=== PATIENT | female | born 1965 | race Caucasian/White ===

== ENCOUNTER 2018-11-25 08:32 | Day surgery (SDC) | payer SELFPAY ==
--- NOTE | 2018-11-13 10:45 | EKG12_ITS ---
Test Reason : PRE-OP Blood Pressure : / mmHG Vent. Rate : 069 BPM Atrial Rate : 069 BPM P-R Int : 198 ms QRS Dur : 090 ms QT Int : 394 ms P-R-T Axes : 035 041 034 degrees QTc Int : 422 ms Normal sinus rhythm Normal ECG Confirmed by JANUARY FONTANA, NIKKO ([id number]), video news editor PRISCILA ABDALLA ([id number]) on 11/18/2018 9:56:26 AM Referred By: Yony Wade Confirmed By:NIKKO SIN MD
[2018-11-13 11:12] LABS: Hematocrit 40.1 % (37-47); Hemoglobin 13.2 g/dl (12.0-15.0); Mean Corp Hgb Conc 32.9 g/gl (32-36); Mean Corpuscular Hgb 31.8 pg (27.0-32.0); Mean Corpuscular Volume 96.6 fL (81-99); Mean Platelet Vol. 9.2 fl (6.2-12.0); Platelet Count 187 K/mm3 (150-450); RBC Distribution Width CV 11.7 % (11.6-14.6); RBC Distribution Width SD 41.4 fl (35.1-43.9); Red Blood Count 4.15 M/mm3 (4.2-5.4); White Blood Count 4.4 K/mm3 (4.4-11.0)
[2018-11-13 11:15] LABS: Scan Indicated on CBC? Y/N NO
[2018-11-13 11:35] LABS: Creatinine, Serum 0.73 mg/dL (0.55-1.02); EST Glomerular Filtration Rate 88 mL/min (>60); Est Glom Filt Rate - Afr Amer 107 mL/min (>60)
[2018-11-13 11:39] LABS: Prothrombin Time (Protime)PT. 13.1 SECONDS (11.7-14.9)
[2018-11-13 11:40] LABS: Partial Thromboplast Time 29.2 Seconds (24.1-36.2)
--- NOTE | 2018-11-24 21:07 | PCM.HP.BLA ---
History and Physical Date of Admission: 11/25/18 Surgical History and Physical Henry Schwarz, a 53 year old female 4 0 0 0 4, presents for Vaginal Hysterectomy and AP Repair on November 25, 2018 at 10:40. -- Uterine Prolapse -- Henry is referred for uterine prolapse and possible cystocele/rectocele. Pt relates just over 1yr ago she noted a bulge from the vagina and sx have continued to worsen. She sts she has urinary urgency and feels like she just cant completely empty her bladder. 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 Uterine prolapse, cystocele which began 1-2yrs ago. Esta claims it started suddenly and has been present constantly for 1 year. It occurs all the time. It is located in the vagina. Esta characterizes it to be non-radiating. Esta characterizes the quality aching. Severity is severe. It is aggravated by any activity. It is relieved by lying down. Associated signs and symptoms are Bulge from vagina. MEDICATIONS HISTORY: Current medications prescribed by our practice are: 1. Premarin 0.625 mg/gram vaginal cream, one half gram per vagina twice weekly at ALLERGIES: No Known Drug Allergies Infections - Chicken pox childhood Illnesses - no serious past illnesses Accidents - None Hospitalizations - Childbirth and see surgery Review of Systems: GENERAL - Denies fever, or chills SKIN - Denies skin changes EYES - Denies visual changes EARS - Denies difficulty hearing NOSE - Denies nasal congestion or bleeding MOUTH - Denies sore throat or difficulty swallowing NECK - Denies pain or swelling RESPIRATORY - Denies shortness of breath or wheezing CARDIOVASCULAR - Denies palpitations or chest pain GASTROINTESTINAL - Denies nausea, vomiting, diarrhea, constipation GENITOURINARY - Denies dysuria, frequency of urination, incontinence of urine MUSCULOSKELETAL - Denies joint or muscle pain NEUROLOGICAL - Denies localized numbness or weakness PSYCHIATRIC - Denies depression or anxiety ENDOCRINE - Denies heat or cold intolerance, weight loss or gain HEMATO-IMMUNOLOGIC - Denies excesive bleeding with cuts SOCIAL HISTORY: Alcohol Use - None Smoking - Never Diet - Trim Healthy Mamma Diet Lifestyle - moderate stress lifestyle and Exercise - active work Seat Belt Use - always Employer - Self Employed Catering Illicit Drug Use - None Sexual Activity - Spouse-Sig Other Name - Jose Spouse-Sig Other Occupation - [employer] Children Name(s) - 4 children Control - postmenopausal FAMILY HISTORY: nc MENSTRUAL HISTORY: LMP Known?- Postmenopausal, LMP - 02/04/16 PAST PREGNANCIES: Total Pregnancies - 4; Full Term Pregnancies - 4; Premature - 0; Abortions, Induced - 0; Abortions, Spontaneous - 0; Ectopics - 0; Multiple Births - 0; Living Children - 4 SURGICAL HISTORY: 1. Cyst removed from foot 2010 ; - PHYSICAL EXAM BP- 110/70 Sitting, Right arm, regular cuff Weight- 174.29485 lbs Height- 63 inch BMI:30.89 CONSTITUTIONAL - NAD, well nourished, and well developed HEENT - Normocephalic, PERRLA, EOMI NECK - no nuchal rigidity EXTREMITIES - No edema or calf tenderness NEUROLOGICAL - Cranial nerves II-XII grossly intact PSYCHIATRIC - A and O to time, place, person, mood and affect External Genitial Vagina - non-tender without lesions Urethra/Urethral Meatus - non-tender Bladder - non-tender Vagina - loss of rugae and large cystocele protruding 2 cm outside vaginal introitus Cervix - without cervical motion tenderness and has normal size and features without evident lesions and protrudes 2-3 cm outside introitus with bearing down Uterus - 5-6 cm in size, mobile and nontender Adnexa - clear without massess or tenderness ASSESSMENT/PLAN: 1. Uterovaginal Prolapse, Cystocele, Rectocele Very symptomatic. Tried pessary but desires now to proceed with surgery. Plan vaginal hysterectomy and anterior repair. Discussed RBAs and all questions answered.
[2018-11-25] VITALS (17 sets, daily range): BP systolic 84–126; BP diastolic 52–83; PULSE 53–92; RESP 14–18; TEMP 36.2–37.1; O2SAT 96–100; BMI 29.9
--- NOTE | 2018-11-25 | HYST_PTH ---
PATIENT: CHRISTOPHER SAGASTUME [place] [facility] [id number] AGE/SX: 53/F ROOM: RE11/25/[address]: Dr. Yony Wade MD : [id number] BED: DIS: 11/26/2018 SPEC #: [id number] RECD: 11/25/18 14:18 STATUS: LILLI WALKERKiran #: [id number] CHRIS: 11/25/18 00:[address]: Yony Wade DEPT: SURGICAL PATHOLOGY RECD BY: Josiah Lara ENTERED: 11/25/18 14:18 SP TYPE: HYSTERECT OTHR DR: MD Dr. Yony Sales MD Tissues: Uterus, NOS Procedures: Surgery Specimen Level V HEADER OPERATION: Vaginal hysterectomy, anterior and posterior repair PRE-OP DIAGNOSIS: Uterovaginal prolapse, cystocele, rectocele TISSUE SUBMITTED: Uterus, cervix, vaginal mucosa MICROSCOPIC DIAGNOSIS Uterus, cervix and vaginal mucosa; vaginal hysterectomy, anterior and posterior repair: Cervix - mild chronic inflammation and parakeratosis. Small nabothian cyst. Endometrium - endometrial polyp, negative for atypia or hyperplasia. Background endometrium showing inactive pattern. Myometrium - adenomyosis. Intramural leiomyomas with hyalinizing sclerosis. Vaginal mucosa - squamous mucosa with parakeratosis. CE:thang 11/26/18 MICROSCOPIC DESCRIPTION Slides are reviewed. GROSS DESCRIPTION Received in fixative is one container labeled with the patient's name and designated uterus. The specimen consists of a uterus with attached cervix measuring 11.5 x 5.5 x 4.8 cm and weighing 100 gm. The ectocervix is unremarkable. The cervical os is oval in contour. The endocervical canal measures 3.5 cm in length and is grossly unremarkable. The triangular endometrial cavity measures 4 x 3 cm. The velvety, light coronel endometrium measures up to 0.2 cm in thickness. The myometrium measures 2 cm in average thickness and is distorted by multiple spherical rubbery nodules resembling leiomyomas. Also present free in the container are multiple irregular fragments of glistening coronel mucosa with attached hemorrhagic submucosal tissue measuring in aggregate 7 x 5 x 0.6 cm. No mucosal mass lesions are identified. Internal Revenue [employer] Agent sections are submitted in ten cassettes as follows: 1 - anterior cervix, 2 - posterior cervix, 3 & 4 - anterior uterine wall, 5 & 6 - posterior uterine wall, 7 - largest myometrial mass, 8 - second largest myometrial mass, 9 - third largest myometrial mass, bisected, 10 - vaginal mucosa. / AM:thang 11/25/18 TC:1 CPT: 93196
--- NOTE | 2018-11-25 10:49 | PCM.OPRPT ---
Report of Operation Date of Procedure: 11/25/18 Pre-Operative Diagnosis: Uterovaginal Prolapse, Cystocele, Rectocele Post-Operative Diagnosis: Uterovaginal Prolapse, Cystocele, Rectocele Surgery/Procedure Performed:: Vaginal Hysterectomy, Anterior Posterior Repair Description of Surgical Findings:: 8 cm uterus with cervix protruding 2 cm outside of the introitus. Large cystocele, mild rectocele. batch and furnace operator: Tessy Lucero Type of Anesthesia:: General - endotracheal Anesthesiologist: Eddie Julio Specimen's removed: Uterus and vaginal mucosa Drains: Allen to straight drain Estimated Blood Loss (mL): 100 cc Fluids Replaced: Crystalloid Description of Procedure: Surgeon: Yony Wade MD, [facility] OG Indications: This is a 53-year-old multiparous patient who is been having problems with symptomatic uterine prolapse. Conservative measures including a pessary have not been helpful. Given this the patient desires that we proceed the above procedure. She has been counseled regarding the risk and indications of this procedure including the possibility of bleeding, infection, and injury to surrounding structures such as bowel bladder. All questions were answered. Procedure: Patient was taken to the operating room where after induction of general anesthesia she was placed in the dorsal lithotomy position and prepped and draped in the usual sterile fashion. A Allen catheter was placed. Anterior cervix was grasped with a tenaculum and anterior cervix circumscribed with cautery on a setting of 35 W coagulation. Anterior vaginal mucosa was undermined and anterior peritoneum was easily entered. The posterior aspect of the cervix was circumscribed with a knife and posterior peritoneum easily entered. Progressive bites were taken on either side of the uterine cervix and each pedicle ligated with 0 Vicryl suture. Superior pedicles were ligated ?2 with 0 Vicryl suture and sidewall pedicles were examined and oversewn where necessary with [id number] 0 Vicryl suture to achieve hemostasis. Posterior vaginal cuff was oversewn with running locked 0 Vicryl suture. Hemostasis was noted and peritoneum was closed in a pursestring fashion incorporating superior pedicles into the stitch. Vaginal cuff was then closed front to back with interrupted [id number] 0 Vicryl suture. Hemostasis was noted. Attention was turned toward the anterior repair portion of the procedure. Anterior vaginal mucosa was undermined and divided and then imbricated toward the midline with interrupted 0 Vicryl sutures. Vaginal mucosa was trimmed and then closed with interrupted 2-0 chromic suture. Vaginal cuff was then closed front to back with interrupted [id number] 0 Vicryl suture. Hemostasis was noted. Attention was turned toward the posterior repair portion of the procedure. Remnants of the hymenal ring were grasped with Allises and a V-shaped incision was made in the perineum. Rectovaginal mucosa was then undermined divided and then imbricated toward the midline with interrupted 0 Vicryl suture. Vaginal mucosa was trimmed and then closed with running locked 2-0 chromic suture. Remnants of the bulbocavernosus muscles were identified and brought toward the midline with a single [id number] 0 Vicryl suture and perineum was closed in the usual fashion with running and subcuticular, and myvhna-je-hkarl 2-0 chromic suture. Hemostasis was noted. Allen catheter was again opened and clear yellow urine was noted. Vagina was packed with iodoform tape. Patient tolerated the procedure well was taken to recovery room in satisfactory condition; sponge instrument and needle counts were all reportedly correct. Estimated blood loss for the case was less than 200 cc. Cefotan 2 g IV was given prior to beginning the operative procedure. There were no apparent complications of the surgery. Specimen to pathology was uterus and vaginal mucosa. Grafts/Implants Used: None - Complications None - Admit VTE Documentation VTE Present on Admission: Yes VTE Mechan Device Prophylaxis: SCD's VTE Pharm Prophylaxis ordered?: Yes
--- NOTE | 2018-11-25 10:55 | DCINST_ITS ---
Discharge Diet: No Restrictions Discharge Activity: Return to Normal Activity, May not drive while taking narcotic pain medications., May Shower May resume sexual activity in: 6-8 weeks Call your doctor if your incision/area has: Continuous Slow Oozing, Sudden Increased Bleeding, Increased Pain/ Swelling, Increased Redness, Foul Smelling Discharge Call your doctor if you observe: Fever of 101 or Higher, Inability to urinate, Inability to have a bowel movement, Using more than one pad per hour Allergies/Adverse Reactions: Allergies No Known Allergies Allergy (Verified 11/11/18 11:21) Medications to take at Discharge Dextrin [Fiber] 350 gm PO QHS 11/11/18 Multivitamins,Therapeutic [Multivitamin] 1 tablet PO DAILY 11/11/18 Docusate Sodium [Colace] 100 mg PO BID PRN PRN #60 cap 11/25/18 Oxycodone [Oxyir] 5 mg PO Q6H PRN PRN 7 Days #10 tab 11/25/18 The following prescriptions were given: Oxycodone [Oxyir] 5 mg PO Q6H PRN PRN 7 Days #10 tab PRN Reason: Severe Pain (-08/14) Docusate Sodium [Colace] 100 mg PO BID PRN PRN #60 cap PRN Reason: Constipation Orders to be completed after discharge: 12 Lead EKG [[facility]] Time Frame: 11/13/18, Location: None Selected Primary Care Physician: Yony Daley [Primary Care Provider] - Test Results: Test results from this visit will be discussed in further detail at your follow- up appointment, if applicable. Please Follow Up With: Yony Wade MD When: 2-3 weeks
[2018-11-25] MEDS: Dextrose 5%-Lactated Ringers 1,000 ML 150 ML IV (17:17)
[2018-11-25] MEDS: Acetaminophen 500 MG Tablet 1000 MG PO (17:22)
[2018-11-25] MEDS: Enoxaparin 30 MG/0.3 ML Syringe SC (17:22)
[2018-11-25] MEDS: Ketorolac 30 MG/ML Syringe IV (18:42)
[2018-11-25] MEDS: 0.9% NaCl Peripheral Flush Adult/Peds IV (18:42)
[2018-11-25] MEDS: oxyCODONE 5 MG Tablet PO (20:26)
[2018-11-26] MEDS: Dextrose 5%-Lactated Ringers 1,000 ML 150 ML IV (00:10)
[2018-11-26] MEDS: Ketorolac 30 MG/ML Syringe IV (01:10)
[2018-11-26] MEDS: 0.9% NaCl Peripheral Flush Adult/Peds IV ×2 (01:12→06:40)
[2018-11-26 03:57] VITALS: BP 101/67; PULSE 60; RESP 16; TEMP 36.4; O2SAT 99
[2018-11-26 05:54] LABS: Hematocrit 30.7 % (37-47); Hemoglobin 10.3 g/dl (12.0-15.0); Mean Corp Hgb Conc 33.6 g/gl (32-36); Mean Corpuscular Hgb 32.4 pg (27.0-32.0); Mean Corpuscular Volume 96.5 fL (81-99); Mean Platelet Vol. 9.6 fl (6.2-12.0); Platelet Count 152 K/mm3 (150-450); RBC Distribution Width CV 11.2 % (11.6-14.6); RBC Distribution Width SD 38.5 fl (35.1-43.9); Red Blood Count 3.18 M/mm3 (4.2-5.4)
[2018-11-26 06:04] LABS: Scan Indicated on CBC? Y/N NO
[2018-11-26 06:19] LABS: Creatinine, Serum 0.66 mg/dL (0.55-1.02); EST Glomerular Filtration Rate 98 mL/min (>60); Est Glom Filt Rate - Afr Amer 119 mL/min (>60); Estimated Creatinine Clearance 83.17 ml/min
[2018-11-26] MEDS: Ketorolac 10 MG Tablet PO ×2 (06:42→12:26)
[2018-11-26 07:54] VITALS: BP 99/61; PULSE 60; RESP 16; TEMP 36.6; O2SAT 99
--- NOTE | 2018-11-26 08:42 | PCM.PN.OB ---
Subjective: Patient without complaints. Tolerating diet well. Positive flatus. Minimal vaginal bleeding overnight. - Physical Exam Vital Signs Temp Pulse Resp BP Pulse Ox 97.9 F 60 16 99/61 99 11/26/18 07:54 11/26/18 07:54 11/26/18 07:54 11/26/18 07:54 11/26/18 07:54 Oxygen Flow Rate (L/min) 2 Oxygen Delivery Method Room Air Weight: 174 lb 13.225 oz Body Mass Index (BMI) 29.9 Intake and Output for Last 24 Hours 11/24/18 11/25/18 11/26/18 23:59 23:59 23:59 Intake Total 6740 / 6740 2579 / 2579 Output Total 455 / 455 1800 / 1800 Balance 6285 / 6285 779 / 779 Laboratory Tests Past 24 Hrs 11/26/18 11/26/18 05:14 05:14 WBC 8.0 RBC 3.18 L Hgb 10.3 L Hct 30.7 L MCV 96.5 MCH 32.4 H MCHC 33.6 RDW 11.2 L RDW Differential 38.5 Plt Count 152 MPV 9.6 Creatinine 0.66 Estim Creat Clear Calc 83.17 Est GFR (MDRD) Af Amer 119 Est GFR (MDRD) Non-Af 98 Vaginal pack out and minimal vaginal bleeding. Hemoglobin and creatinine okay. Medical Necessity - Tobacco Use Smoking Status: Never smoker Assessment/Plan Doing well postoperative day #1 status post vaginal hysterectomy and anterior posterior repair. We will released to home later today when able to void on her own.
--- OUTSIDE RECORDS SUMMARY | 2019-01-27 15:51 | XMS RPT_ITS ---
:1965 Author Organization OHIP Care Team Providers Name Role Phone Yony Wade Attending Unavailable Yony Wade Referring Unavailable Yony Daley Primary Care Unavailable Eren Wade Consulting Unavailable PROBLEMS PROBLEMS DATE TYPE CONDITION / CODE ATTENDING STATUS SOURCE 11/26/2018 Unknown G89.18 - Other acute Yony Wade Active [facility] postprocedural pain Community / G89.18(ICD-10) Hospital Repository PROCEDURES PROCEDURES No Procedure Records FoundRESULTS RESULTS CBC-COMPLETE BLOOD CNT Collected: 11/26/2018 Status: F Source: [place] NO DIFF 5:14 AM [facility] REPOSITORY TYPE CODE TESTS RESULT OUT OF RANGE REFERENCE UNITS LAB L100.1000 4.4-11.0 K/mm3 Normal WBC 8.0 LAB L100.1200 4.2-5.4 M/mm3 Low RBC 3.18 LAB L100.1300 12.0-15.0 g/dl Low HGB 10.3 LAB L100.1400 37-47 % Low HCT 30.7 LAB L100.1500 81-99 fL Normal MCV 96.5 LAB L100.1600 27.0-32.0 pg High MCH 32.4 LAB L100.1700 32-36 g/gl Normal MCHC 33.6 LAB L100.1810 11.6-14.6 % Low RDW CV 11.2 LAB L100.1820 35.1-43.9 fl Normal RDW SD 38.5 LAB L100.1900 150-450 K/mm3 Normal PLT 152 LAB L100.2000 6.2-12.0 fl Normal MPV 9.6 Performed By: #### L100.0500 #### [facility] [address] [place], [place], [address] SERUM CREATININE AND Collected: 11/26/2018 Status: F Source: [place] GFR 5:14 AM [facility] REPOSITORY TYPE CODE TESTS RESULT OUT OF RANGE REFERENCE UNITS LAB L501.1100 0.55-1.02 mg/dL Normal 0.66 CREAT,SERUM Result Comment: The validity of the calculated GFR AND GFRAA in patients over 70 years has not been determined. Clinical correlation is essential. LAB L501.1110 >60 mL/min Normal EST GFR 98 Result Comment: Non- GFR Calc LAB L501.1115 >60 mL/min Normal EST GFR - AA 119 Result Comment: GFR Calc LAB L501.1255 ml/min Normal Estimated CRCL 83.17 Performed By: #### L501.1105 #### [facility] [address] [place], [address] OPERATIVE REPORT Observed: 11/25/2018 Status: F Source: [place] 12:57 PM [facility] REPOSITORY [facility] Medical Records Department [address] [place] [address] Operative Report 11/25/18 1049 MR#: [id number] Acct: [id number] Name: CHRISTOPHER SCHWARZ Rep #: [id number] : 1965 53 From: Yony Wade MD PCP: Yony Daley MD Status: [facility] Y Location: [place] [address] Report of Operation Date of Procedure: 11/25/18 Pre-Operative Diagnosis: Uterovaginal Prolapse, Cystocele, Rectocele Post-Operative Diagnosis: Uterovaginal Prolapse, Cystocele, Rectocele Surgery/Procedure Performed:: Vaginal Hysterectomy, Anterior Posterior Repair Description of Surgical Findings:: 8 cm uterus with cervix protruding 2 cm outside of the introitus. Large cystocele, mild rectocele. pump machine operator: Tessy Lucero Type of Anesthesia:: General - endotracheal Anesthesiologist: Eddie Julio Specimen's removed: Uterus and vaginal mucosa Drains: Allen to straight drain Estimated Blood Loss (mL): 100 cc Fluids Replaced: Crystalloid Description of Procedure: Surgeon: Yony Wade MD, [facility] OG Indications: This is a 53-year-old multiparous patient who is been having problems with symptomatic uterine prolapse. Conservative measures including a pessary have not been helpful. Given this the patient desires that we proceed the above procedure. She has been counseled regarding the risk and indications of this procedure including the possibility of bleeding, infection, and injury to surrounding structures such as bowel bladder. All questions were answered. Procedure: Patient was taken to the operating room where after induction of general anesthesia she was placed in the dorsal lithotomy position and prepped and draped in the usual sterile fashion. A Allen catheter was placed. Anterior cervix was grasped with a tenaculum and anterior cervix circumscribed with cautery on a setting of 35 W coagulation. Anterior vaginal mucosa was undermined and anterior peritoneum was easily entered. The posterior aspect of the cervix was circumscribed with a knife and posterior peritoneum easily entered. Progressive bites were taken on either side of the uterine cervix and each pedicle ligated with 0 Vicryl suture. Superior pedicles were ligated 2 with 0 Vicryl suture and sidewall pedicles were examined and oversewn where necessary with bupmig-hn-gomjk 0 Vicryl suture to achieve hemostasis. Posterior vaginal cuff was oversewn with running locked 0 Vicryl suture. Hemostasis was noted and peritoneum was closed in a pursestring fashion incorporating superior pedicles into the stitch. Vaginal cuff was then closed front to back with interrupted pdxbsw-pm-ygkgj 0 Vicryl suture. Hemostasis was noted. Attention was turned toward the anterior repair portion of the procedure. Anterior vaginal mucosa was undermined and divided and then imbricated toward the midline with interrupted 0 Vicryl sutures. Vaginal mucosa was trimmed and then closed with interrupted 2-0 chromic suture. Vaginal cuff was then closed front to back with interrupted bnrdnn-wq-aoncv 0 Vicryl suture. Hemostasis was noted. Attention was turned toward the posterior repair portion of the procedure. Remnants of the hymenal ring were grasped with Allises and a V-shaped incision was made in the perineum. Rectovaginal mucosa was then undermined divided and then imbricated toward the midline with interrupted 0 Vicryl suture. Vaginal mucosa was trimmed and then closed with running locked 2-0 chromic suture. Remnants of the bulbocavernosus muscles were identified and brought toward the midline with a single hsxgaf-kh-fjjec 0 Vicryl suture and perineum was closed in the usual fashion with running and subcuticular, and hqhrlk-vo-citrf 2-0 chromic suture. Hemostasis was noted. Allen catheter was again opened and clear yellow urine was noted. Vagina was packed with iodoform tape. Patient tolerated the procedure well was taken to recovery room in satisfactory condition; sponge instrument and needle counts were all reportedly correct. Estimated blood loss for the case was less than 200 cc. Cefotan 2 g IV was given prior to beginning the operative procedure. There were no apparent complications of the surgery. Specimen to pathology was uterus and vaginal mucosa. Grafts/Implants Used: None - Complications None - Admit VTE Documentation VTE Present on Admission: Yes VTE Mechan Device Prophylaxis: SCD's VTE Pharm Prophylaxis ordered?: Yes 11/25/18 1257 <Electronically signed by Yony Wade MD> Date Yony Wade MD CC: Eren Wade MD; Yony Daley MD; Yony Wade MD Signed DISCHARGE INSTRUCTION Observed: 11/25/2018 Status: F Source: [place] 10:55 AM [facility] REPOSITORY [facility] Medical Records Department [address] [place] [address] Instructions for Home/Discharge Instructions 11/25/18 1054 MR#: [id number] Acct: [id number] Name: CHRISTOPHER SCHWARZ Rep #: [id number] : 1965 53 From: Yony Wade MD PCP: Yony Daley MD Status: REG SDC Discharge Diet: No Restrictions Discharge Activity: Return to Normal Activity, May not drive while taking narcotic pain medications., May Shower May resume sexual activity in: 6-8 weeks Call your doctor if your incision/area has: Continuous Slow Oozing, Sudden Increased Bleeding, Increased Pain/ Swelling, Increased Redness, Foul Smelling Discharge Call your doctor if you observe: Fever of 101 or Higher, Inability to urinate, Inability to have a bowel movement, Using more than one pad per hour Allergies/Adverse Reactions: Allergies No Known Allergies Allergy (Verified 11/11/18 11:21) Medications to take at Discharge Dextrin [Fiber] 350 gm PO QHS 11/11/18 Multivitamins,Therapeutic [Multivitamin] 1 tablet PO DAILY 01/07/19 Docusate Sodium [Colace] 100 mg PO BID PRN PRN #60 cap 11/25/18 Oxycodone [Oxyir] 5 mg PO Q6H PRN PRN 7 Days #10 tab 11/25/18 The following prescriptions were given: Oxycodone [Oxyir] 5 mg PO Q6H PRN PRN 7 Days #10 tab PRN Reason: Severe Pain (6-08/14) Docusate Sodium [Colace] 100 mg PO BID PRN PRN #60 cap PRN Reason: Constipation Orders to be completed after discharge: 12 Lead EKG [CVS] Time Frame: 11/13/18, Location: None Selected Primary Care Physician: Yony Daley [Primary Care Provider] - Test Results: Test results from this visit will be discussed in further detail at your follow-up appointment, if applicable. Please Follow Up With: Yony Wade MD When: 2-3 weeks 11/25/18 1055 <Electronically signed by Yony Wade MD> Date Yony Wade MD CC: Eren Wade MD; Yony Daley MD Signed HYSTERECTOMY SPECIMEN Observed: 11/25/2018 Status: F Source: [place] 12:00 AM [facility] REPOSITORY Patient: CHRISTOPHER SCHWARZ : 1965 (53/F) Acct Num: [id number] Phys: Yony Wade MD Unit Num: [id number] [place] [facility] [place]imen: [id number] Received: 11/25/18 - 1418 Spec Type: HYSTERECT TISSUES 1 TISSUES: Uterus, NOS GROSS DESCRIPTION Received in fixative is one container labeled with the patient's name and designated uterus. The specimen consists of a uterus with attached cervix measuring 11.5 x 5.5 x 4.8 cm and weighing 100 gm. The ectocervix is unremarkable. The cervical os is oval in contour. The endocervical canal measures 3.5 cm in length and is grossly unremarkable. The triangular endometrial cavity measures 4 x 3 cm. The velvety, light coronel endometrium measures up to 0.2 cm in thickness. The myometrium measures 2 cm in average thickness and is distorted by multiple spherical rubbery nodules resembling leiomyomas. Also present free in the container are multiple irregular fragments of glistening coronel mucosa with attached hemorrhagic submucosal tissue measuring in aggregate 7 x 5 x 0.6 cm. No mucosal mass lesions are identified. Senior Tax Accountant sections are submitted in ten cassettes as follows: 1 - anterior cervix, 2 - posterior cervix, 3 AND 4 - anterior uterine wall, 5 AND 6 - posterior uterine wall, 7 - largest myometrial mass, 8 - second largest myometrial mass, 9 - third largest myometrial mass, bisected, 10 - vaginal mucosa. / AM:thang TC:1 CPT: 24917 HEADER OPERATION: Vaginal hysterectomy, anterior and posterior repair PRE-OP DIAGNOSIS: Uterovaginal prolapse, cystocele, rectocele TISSUE SUBMITTED: Uterus, cervix, vaginal mucosa MICROSCOPIC DESCRIPTION Slides are reviewed. MICROSCOPIC DIAGNOSIS Uterus, cervix and vaginal mucosa; vaginal hysterectomy, anterior and posterior repair: Cervix - mild chronic inflammation and parakeratosis. Small nabothian cyst. Endometrium - endometrial polyp, negative for atypia or hyperplasia. Background endometrium showing inactive pattern. Myometrium - adenomyosis. Intramural leiomyomas with hyalinizing sclerosis. Vaginal mucosa - squamous mucosa with parakeratosis. CE:thang 11/26/18 Signed Ruben Gibson MD <signature on file> Performed By: #### PHYST #### [facility] [address] [place], [address] HISTORY AND PHYSICAL Observed: 11/24/2018 Status: F Source: [place] EXAM 9:09 PM [facility] REPOSITORY [facility] Medical Records Department [address] [place] [address] History and Physical 11/24/18 2107 MR#: [id number] Acct: [id number] Name: CHRISTOPHER SCHWARZ Rep #: [id number] : 1965 53 From: Yony Wade MD PCP: Yony Daley MD Status: [place] [facility] [place] [facility] [place] and Physical Date of Admission: 11/25/18 Surgical History and Physical Christopher Schwarz, a 53 year old female 4 0 0 0 4, presents for Vaginal Hysterectomy and AP Repair on November 25, 2018 at 10:40. -- Uterine Prolapse -- Christopher is referred for uterine prolapse and possible cystocele/rectocele. Pt relates just over 1yr ago she noted a bulge from the vagina and sx have continued to worsen. She sts she has urinary urgency and feels like she just cant completely empty her bladder. 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 Uterine prolapse, cystocele which began 1- 2yrs ago. Esta claims it started suddenly and has been present constantly for 1 year. It occurs all the time. It is located in the vagina. Esta characterizes it to be non-radiating. Esta characterizes the quality aching. Severity is severe. It is aggravated by any activity. It is relieved by lying down. Associated signs and symptoms are Bulge from vagina. MEDICATIONS HISTORY: Current medications prescribed by our practice are: 1. Premarin 0.625 mg/gram vaginal cream, one half gram per vagina twice weekly at ALLERGIES: No Known Drug Allergies Infections - Chicken pox childhood Illnesses - no serious past illnesses Accidents - None Hospitalizations - Childbirth and see surgery Review of Systems: GENERAL - Denies fever, or chills SKIN - Denies skin changes EYES - Denies visual changes EARS - Denies difficulty hearing NOSE - Denies nasal congestion or bleeding MOUTH - Denies sore throat or difficulty swallowing NECK - Denies pain or swelling RESPIRATORY - Denies shortness of breath or wheezing CARDIOVASCULAR - Denies palpitations or chest pain GASTROINTESTINAL - Denies nausea, vomiting, diarrhea, constipation GENITOURINARY - Denies dysuria, frequency of urination, incontinence of urine MUSCULOSKELETAL - Denies joint or muscle pain NEUROLOGICAL - Denies localized numbness or weakness PSYCHIATRIC - Denies depression or anxiety ENDOCRINE - Denies heat or cold intolerance, weight loss or gain HEMATO-IMMUNOLOGIC - Denies excesive bleeding with cuts SOCIAL HISTORY: Alcohol Use - None Smoking - Never Diet - Trim Healthy Mamma Diet Lifestyle - moderate stress lifestyle and Exercise - active work Seat Belt Use - always Employer - Self Employed Catering Illicit Drug Use - None Sexual Activity - Spouse-Sig Other Name - Wei Spouse-Sig Other Occupation - [employer] Children Name(s) - 4 children Control - postmenopausal FAMILY HISTORY: nc MENSTRUAL HISTORY: LMP Known?- Postmenopausal, LMP - 02/04/16 PAST PREGNANCIES: Total Pregnancies - 4; Full Term Pregnancies - 4; Premature - 0; Abortions, Induced - 0; Abortions, Spontaneous - 0; Ectopics - 0; Multiple Births - 0; Living Children - 4 SURGICAL HISTORY: 1. Cyst removed from foot 2010 ; - PHYSICAL EXAM BP- 110/70 Sitting, Right arm, regular cuff Weight- 174.03223 lbs Height- 63 inch BMI:30.89 CONSTITUTIONAL - NAD, well nourished, and well developed HEENT - Normocephalic, PERRLA, EOMI NECK - no nuchal rigidity EXTREMITIES - No edema or calf tenderness NEUROLOGICAL - Cranial nerves II-XII grossly intact PSYCHIATRIC - A and O to time, place, person, mood and affect External Genitial Vagina - non-tender without lesions Urethra/Urethral Meatus - non-tender Bladder - non-tender Vagina - loss of rugae and large cystocele protruding 2 cm outside vaginal introitus Cervix - without cervical motion tenderness and has normal size and features without evident lesions and protrudes 2-3 cm outside introitus with bearing down Uterus - 5-6 cm in size, mobile and nontender Adnexa - clear without massess or tenderness ASSESSMENT/PLAN: 1. Uterovaginal Prolapse, Cystocele, Rectocele Very symptomatic. Tried pessary but desires now to proceed with surgery. Plan vaginal hysterectomy and anterior repair. Discussed RBAs and all questions answered. 11/24/182108 <Electronically signed by Yony Wade MD> Date Yony Wade MD Cosigner Signature: Date (if applicable) CC: Yony Daley MD; Yony Wade MD Signed 12 LEAD ELECTROCARDIOGRAM Observed: 11/18/2018 Status: F Source: [place] 9:56 AM [facility] REPOSITORY [facility] Cardiovascular Services [address] [place] [address] 12 Lead EKG 11/13/18 1051 MR#: [id number] Acct: [id number] Name: CHRISTOPHER SCHWARZ Rep #: [id number] : 1965 53 From: James Sin MD Attending Dr: Yony Wade MD Status: PRE SDC Ordering Dr: Yony Wade MD Date: 11/13/18 [place] [facility] [place] Sex: F C Admitted: Test Reason : PRE-OP Blood Pressure : / mmHG Vent. Rate : 069 BPM Atrial Rate : 069 BPM P-R Int : 198 ms QRS Dur : 090 ms QT Int : 394 ms P-R-T Axes : 035 041 034 degrees QTc Int : 422 ms Normal sinus rhythm Normal ECG Confirmed by JANUARY FONTANA, JAMES ([id number]), city editor PRISCILA ABDALLA ([id number]) on 11/18/2018 9:56:26 AM Referred By: Yony Wade Confirmed By:JAMES SIN MD 11/18/18 0956 Date James Sin MD CC: Yony Daley MD; Yony Wade MD Signed CBC-COMPLETE BLOOD CNT Collected: 11/13/2018 Status: F Source: [place] NO DIFF 10:36 AM [facility] REPOSITORY TYPE CODE TESTS RESULT OUT OF RANGE REFERENCE UNITS LAB L100.1000 4.4-11.0 K/mm3 Normal WBC 4.4 LAB L100.1200 4.2-5.4 M/mm3 Low RBC 4.15 LAB L100.1300 12.0-15.0 g/dl Normal HGB 13.2 LAB L100.1400 37-47 % Normal HCT 40.1 LAB L100.1500 81-99 fL Normal MCV 96.6 LAB L100.1600 27.0-32.0 pg Normal MCH 31.8 LAB L100.1700 32-36 g/gl Normal MCHC 32.9 LAB L100.1810 11.6-14.6 % Normal RDW CV 11.7 LAB L100.1820 35.1-43.9 fl Normal RDW SD 41.4 LAB L100.1900 150-450 K/mm3 Normal PLT 187 LAB L100.2000 6.2-12.0 fl Normal MPV 9.2 Performed By: #### L100.0500 #### [facility] [address] [place], [address] SERUM CREATININE AND Collected: 11/13/2018 Status: F Source: [place] GFR 10:36 AM [facility] REPOSITORY TYPE CODE TESTS RESULT OUT OF RANGE REFERENCE UNITS LAB L501.1100 0.55-1.02 mg/dL Normal 0.73 CREAT,SERUM Result Comment: The validity of the calculated GFR AND GFRAA in patients over 70 years has not been determined. Clinical correlation is essential. LAB L501.1110 >60 mL/min Normal EST GFR 88 Result Comment: Non- GFR Calc LAB L501.1115 >60 mL/min Normal EST GFR - AA 107 Result Comment: GFR Calc Performed By: #### L501.1105 #### [facility] [address] [place], [address] PROTHROMBIN TIME W/INR Collected: 11/13/2018 Status: F Source: [place] 10:36 AM [facility] REPOSITORY TYPE CODE TESTS RESULT OUT OF RANGE REFERENCE UNITS LAB L300.4150 11.7-14.9 SECONDS Normal PROTIME 13.1 LAB L300.4200 Normal INR 1.0 Performed By: #### L300.3900, L300.4310 #### [facility] [address] [place], [address] PARTIAL THROMBOPLAST Collected: 11/13/2018 Status: F Source: [place] TIME 10:36 AM [facility] REPOSITORY TYPE CODE TESTS RESULT OUT OF RANGE REFERENCE UNITS LAB L300.4310 24.1-36.2 Seconds Normal PTT 29.2 Performed By: #### L300.3900, L300.4310 #### [facility] [address] [place], [address] TYPE AND SCREEN Collected: 11/13/2018 Status: F Source: [place] 10:36 AM [facility] REPOSITORY Order Comment: Surgery Date: 11/25/18 Hx of Preganancy in last 3 Months No Ever experience any problems with transfusion(s)? N Hx of Transfusion in last 3 Months N Reason for Type AND Screen/Red Cells: SURGERY SURGICAL PROCEDURE: HYS TYPE CODE TESTS RESULT OUT OF RANGE REFERENCE UNITS LAB B10.0800 B Normal BLOOD TYPE GEL POSITIVE LAB B100.4000 Normal Antibody NEGATIVE Screen Performed By: #### B101.7475 #### [facility] [address] [place], [place], [address] ALLERGIES ALLERGIES DATE TYPE / CODE NAME / CODE REACTION SEVERITY SOURCE 11/11/2018 Drug No Known Unknown [facility] Allergy/4160 Allergies/F00 [facility] [address](SNOMED [id number](RXNOR Repository CT) M) ENCOUNTERS ENCOUNTERS ADMIT/DISCHARGE ACCOUNT ADMITTING ENCOUNTER LOCATION SOURCE NUMBER CLASS 11/25/2018/ [id number] Ambulatory [facility] 9 7 [facility] ing:SDCRoom: Repository MS311 PAYERS PAYERS ENCOUNTER GUARANTOR PAYER SUBSCRIBER SOURCE 11/25/2018 CHRISTOPHER Richardson Primary Insurance:[facility] CHRISTOPHER Rader [id number] PACKAGE PLANPoly [facility] Number: [id number], [id number]ository [place] [address]Ppm: Date:2018-10-14 () 11/25/2018 Secondary NOT GIVENUNK [place] Insurance:SELF PAY [facility] Number: Effective Repository Date:2018-10-14
== END 2018-11-26 12:32 | disposition home or self-care (01) ==
LOC: SDC 08:42 → AC 08:42 → MS3 10:46
PROVIDERS: Family Provider Family Medicine; PCP Family Medicine; Referring Provider Obstetrics & Gynecology; Visit Provider Obstetrics & Gynecology
PROC: (CPT 58260; principal; 2018-11-25 10:20)
DX: N72 Inflammatory disease of cervix uteri (principal); N80.0 Endometriosis of uterus; D25.1 Intramural leiomyoma of uterus; N88.8 Other specified noninflammatory disorders of cervix uteri; N84.0 Polyp of corpus uteri; R23.4 Changes in skin texture
CPT/HCPCS: 57250; 58260; 36415; 82565; 85027; 85610; 85730; 86850; 86900; 88307; 93005; J7040; J7120; A4216; J2405

== ENCOUNTER → 2022-03-06 | Outpatient (CLI) | payer SELFPAY ==
--- NOTE | 2022-03-06 10:33 | NEURO ---
NCS and/or EMG Patient Report Ordering Doctor: Rosa Maria Grey DATE OF SERVICE: 03/06/22 Indication: Approximately 9 months of weakness in all extremities. Described as a heaviness which is continuous throughout the day. Intermittently there is tingling in both hands and both feet, but no numbness. No associated double vision, dysarthria, dysphagia or shortness of breath. Findings: Nerve conduction studies were performed in the right upper and lower extremity. The right median motor study recording the abductor pollicis brevis showed a normal amplitude, normal distal latency and normal conduction velocity. The right ulnar motor study recording the abductor digiti minimi showed a normal amplitude, normal distal latency and normal conduction velocity. No conduction block or focal slowing was present across the elbow. The right median sensory response recording digit two showed a normal amplitude, latency and conduction velocity. The right ulnar sensory response recording digit five showed a normal amplitude, latency and conduction velocity. The right radial sensory response recording over the extensor snuff box showed a normal amplitude, latency and conduction velocity. The right peroneal motor study recording the extensor digitorum brevis showed a normal amplitude, normal distal latency and normal conduction velocity. No conduction block or focal slowing was present across the fibular neck. The right tibial motor study recording the abductor hallucis brevis showed a normal amplitude, normal distal latency and normal conduction velocity. Right sural sensory response showed a normal amplitude and conduction velocity. Right superficial peroneal sensory response showed a normal amplitude and conduction velocity. Needle EMG of the upper and lower extremity muscles was performed. No denervation was present in any muscle. Motor unit morphology, activation, and recruitment patterns were normal. Impression: This is a normal study. There is no electrophysiologic evidence of peripheral neuropathy or myopathy. Please note, testing was ordered on all four extremities, however, given the symmetry of symptoms and absence of findings on the right, examination of the left side was omitted. Ruben Camacho D.O. Multi Select Codes Neurology Neurology Interp Codes: 24774-29 Musc test done w/n test comp (interp) (Qty:2) and 43705-37 Nrv cndj test 9-10 studies (interp)
== END | disposition home or self-care (01) ==
PROVIDERS: PCP Physician Assistant; Referring Provider Physician Assistant; Visit Provider Physician Assistant
DX: M62.81 Muscle weakness (generalized) (principal)
CPT/HCPCS: 95886; 95912

== ENCOUNTER → 2022-04-17 | Outpatient (CLI) | payer SELFPAY ==
--- NOTE | 2022-04-17 12:39 | RAD_ITS ---
STUDY: X-RAY - RIGHT SHOULDER REASON FOR EXAM: Female, 56 years old. pain in right shoulder TECHNIQUE: 4 view(s) of the shoulder. COMPARISON: None. FINDINGS: BONES: No fracture demonstrated. Degenerative changes at the acromioclavicular joint. JOINTS: No dislocation. SOFT TISSUES: Unremarkable. RAD/Shoulder min 2 Views IMPRESSION: No evidence of fracture. Mild degenerative changes at the AC joint. Electronically Signed: Mary Lou Brambila MD at 7:40 EDT ,
--- NOTE | 2022-04-17 12:39 | RAD_ITS ---
STUDY: X-RAY - LEFT ANKLE REASON FOR EXAM: Female, 56 years old. left ankle pain TECHNIQUE: 2 view(s) of the ankle. COMPARISON: None. FINDINGS: BONES: No fracture demonstrated. Calcaneal spurs at the plantar and Achilles insertion sites. JOINTS: No dislocation. SOFT TISSUES: Unremarkable. RAD/Ankle 2 Views IMPRESSION: No evidence of fracture. Electronically Signed: Mary Lou Brambila MD at 6:34 EDT ,
--- NOTE | 2022-04-17 12:39 | RAD_ITS ---
STUDY: X-RAY - LEFT KNEE REASON FOR EXAM: Female, 56 years old. pain in left knee; prior left knee fracture TECHNIQUE: 3 view(s) of the knee. COMPARISON: None. FINDINGS: BONES: No acute fracture demonstrated. Mild deformity of the proximal tibia/lateral plateau likely related to old fracture. JOINTS: No dislocation. SOFT TISSUES: Unremarkable. RAD/Knee 3 Views IMPRESSION: No evidence of acute fracture. Electronically Signed: Mary Lou Brambila MD at 6:38 EDT ,
--- NOTE | 2022-04-17 12:39 | RAD_ITS ---
STUDY: X-RAY - PELVIS AND LEFT HIP REASON FOR EXAM: Female, 56 years old. pain in left hip TECHNIQUE: 3 views of the pelvis and hip. COMPARISON: None. FINDINGS: No fracture demonstrated. Femoral heads are normal contour. No dislocation at the hips. Mild degenerative changes at the hips, symmetric. Degenerative changes at the symphysis pubis. The sacroiliac joints are symmetric. Stool obscures the sacrum. RAD/HIP, UNI W/ Pelvis 2-3 Views IMPRESSION: No evidence of fracture. Mild degenerative changes at the hips. Electronically Signed: Mary Lou Brambila MD at 6:36 EDT ,
--- NOTE | 2022-04-17 12:55 | RAD_ITS ---
STUDY: X-RAY - LUMBAR SPINE REASON FOR EXAM: Female, 56 years old. low back pain TECHNIQUE: 3 view(s) of the lumbar spine were obtained. COMPARISON: None FINDINGS: Vertebral bodies are normal in height. No definite fracture demonstrated. No subluxation. Facet arthropathy at the lower levels. No paravertebral soft tissue mass identified. RAD/Lumbar Spine 2 or 3 Views IMPRESSION: No evidence of fracture or subluxation. Degenerative changes. Electronically Signed: Mary Lou Brambila MD at 7:42 EDT ,
[2022-04-17 15:23] LABS: Hematocrit 38.3 % (37-47); Hemoglobin 12.7 g/dL (12.0-15.0); Mean Corp Hgb Conc 33.2 g/dL (32-36); Mean Corpuscular Hgb 31.9 pg (27.0-32.0); Mean Corpuscular Volume 96.2 fL (81-99); Mean Platelet Vol. 9.3 fl (6.2-12.0); Platelet Count 214 K/mm3 (150-450); RBC Distribution Width CV 11.9 % (11.6-14.6); RBC Distribution Width SD 41.7 fl (35.1-43.9); Red Blood Count 3.98 M/mm3 (4.2-5.4); White Blood Count 4.8 K/mm3 (4.4-11.0)
[2022-04-17 15:50] LABS: ALB/GLOB Ratio 0.9 RATIO (0.9-2.4); AST(SGOT) 22 U/L (15-37); Alanine Aminotransfer ALT/SGPT 35 U/L (13-56); Albumin, Serum 3.7 g/dL (3.2-5.0); Alkaline Phosphatase 78 U/L (45-117); Anion Gap 4 (5-15); BUN 14 mg/dL (7-18); BUN/Creat Ratio 19.9 RATIO (10-20); CPK Total, Creatine Kinase 112 U/L (26-192); Calcium,Total 9.1 mg/dL (8.5-10.1); Chloride 105 mmol/L (98-107); EST Glomerular Filtration Rate 91 mL/min (>60); Est Glom Filt Rate - Afr Amer 110 mL/min (>60); Globulin 3.9 g/dL (2.2-4.2); Glucose 87 mg/dL (74-106); Magnesium 2.1 mg/dL (1.6-2.6); Potassium 3.7 mmol/L (3.5-5.1); Protein, Total 7.6 g/dL (6.4-8.2); Sodium Level 139 mmol/L (136-145)
[2022-04-19 13:08] LABS: Aldolase 3.7 U/L (3.3-10.3)
[2022-04-20 16:59] LABS: Myoglobin, Serum 29 ng/mL (25-58)
== END | disposition home or self-care (01) ==
LOC: MTLAB 12:38
PROVIDERS: PCP Physician Assistant; Referring Provider Psychiatry & Neurology Neurology; Visit Provider Psychiatry & Neurology Neurology
DX: M25.50 Pain in unspecified joint (principal); R53.83 Other fatigue; M79.10 Myalgia, unspecified site; M25.572 Pain in left ankle and joints of left foot; M25.511 Pain in right shoulder; M54.50 Low back pain, unspecified; M25.562 Pain in left knee; M25.552 Pain in left hip
CPT/HCPCS: 36415; 72100; 73030; 73502; 73562; 73600; 80053; 82085; 82550; 83735; 83874; 85027

== ENCOUNTER → 2024-07-28 | Outpatient (CLI) | payer SELFPAY ==
[2024-07-28 18:38] LABS: CRP < 2.90 mg/L (0.0-3.0)
[2024-07-28 18:55] LABS: Erythrocyte Sedimentation Rate 9 mm/hr (0-30)
[2024-07-30 15:08] LABS: Anti-Smooth Muscle ABS 6 Units (0-19)
== END | disposition home or self-care (01) ==
PROVIDERS: PCP Physician Assistant; Referring Provider Internal Medicine Pulmonary Disease; Visit Provider Internal Medicine Pulmonary Disease
DX: T58.91XA Toxic effect of carbon monoxide from unspecified source, accidental (unintentional), initial encounter (principal); R06.00 Dyspnea, unspecified
CPT/HCPCS: 36415; 83516; 85652; 86140